=== PATIENT | male | born 2000 | race Hispanic/Latino ===

== ENCOUNTER 2022-04-29 16:35 | Emergency (ER) | payer BC | END 2022-04-29 20:37 | disposition home or self-care (01) | LOC: ERS 16:35 | DX: S42.402A Unspecified fracture of lower end of left humerus, initial encounter for closed fracture (principal); V29.99XA Rider (driver) (passenger) of other motorcycle injured in unspecified traffic accident, initial encounter | CPT/HCPCS: 29105 ==